=== PATIENT | male | born 1985 | race Hispanic/Latino ===

== ENCOUNTER 2020-09-18 02:30 | Emergency (ER) | payer OTHER ==
[2020-09-18] MEDS ORDERED: MORPHINE SULFATE 4 MG/1ML SYG ONE (02:55)
[2020-09-18] MEDS ORDERED: KETAMINE HCL 100 MG/ML 5ML VIAL IJ ONE (03:16)
[2020-09-18] MEDS ORDERED: PROPOFOL 10 MG/ML 20ML VIAL IV ONE (03:17)
[2020-09-18] MEDS ORDERED: SODIUM CHLORIDE 0.9% 1000ML 1,000 ML IV ONE (03:28)
== END 2020-09-18 06:29 | disposition home or self-care (01) ==
LOC: EDH 02:30
DX: S43.084A Other dislocation of right shoulder joint, initial encounter (principal); Z72.0 Tobacco use; Y93.39 Activity, other involving climbing, rappelling and jumping off; Y93.89 Activity, other specified; Y92.89 Other specified places as the place of occurrence of the external cause; Y99.8 Other external cause status
CPT/HCPCS: 23650 ×2; 73030 ×4; 96374; 99152 ×2; 99284; 99285; J2270; J2405; J2704; J3490 ×2; J7030; 96372; 96375

== ENCOUNTER 2020-09-18 07:56 | Emergency (ER) | payer OTHER ==
[2020-09-18] MEDS ORDERED: KETAMINE HCL 100 MG/ML 5ML VIAL IJ ONE (08:26)
[2020-09-18] MEDS ORDERED: ONDANSETRON HCL 4 MG/2 ML VIAL ONE (09:26)
== END 2020-09-18 11:27 | disposition home or self-care (01) ==
LOC: EDH 07:56
DX: S43.004A Unspecified dislocation of right shoulder joint, initial encounter (principal); S05.11XA Contusion of eyeball and orbital tissues, right eye, initial encounter; F19.10 Other psychoactive substance abuse, uncomplicated; Z72.0 Tobacco use; X58.XXXA Exposure to other specified factors, initial encounter; Y93.89 Activity, other specified; Y92.89 Other specified places as the place of occurrence of the external cause; Y99.8 Other external cause status
CPT/HCPCS: 23650; 73030 ×2; 96374; 99152; 99284; J2405; J3490; 96372; 96375

== ENCOUNTER 2020-09-25 13:30 | Emergency (ER) | payer OTHER ==
[2020-09-25] MEDS ORDERED: KETOROLAC TROMETHAMINE 30MG/ML ONE (13:44)
[2020-09-25] MEDS ORDERED: SODIUM CHLORIDE 0.9% 1000ML 1,000 ML IV ONE (14:23)
[2020-09-25] MEDS ORDERED: PROPOFOL 10 MG/ML 20ML VIAL IV ONE (14:23)
[2020-09-25] MEDS ORDERED: MORPHINE SULFATE 4 MG/1ML SYG ONE (14:27)
== END 2020-09-25 16:58 | disposition home or self-care (01) ==
LOC: EDH 13:30
DX: M24.411 Recurrent dislocation, right shoulder (principal); Z72.0 Tobacco use; X58.XXXA Exposure to other specified factors, initial encounter; Y93.89 Activity, other specified; Y92.098 Other place in other non-institutional residence as the place of occurrence of the external cause; Y99.8 Other external cause status
CPT/HCPCS: 23650; 73030 ×2; 96374; 96375; 99152; 99284; J1885; J2270; J2704; J7030

== ENCOUNTER → 2024-06-21 | Outpatient (CLI) | payer OTHER ==
[~2024-06-21] MED LIST: IOHEXOL 180 MG/ML 20 ML VIAL ONE; LIDOCAINE HCL 1% 20 ML VIAL ONE
== END | disposition home or self-care (01) ==
LOC: RAH 09:11
PROVIDERS: ATTEND Family Medicine
DX: S42.141A Displaced fracture of glenoid cavity of scapula, right shoulder, initial encounter for closed fracture (principal); X58.XXXA Exposure to other specified factors, initial encounter; Y93.89 Activity, other specified; Y92.89 Other specified places as the place of occurrence of the external cause; Y99.8 Other external cause status
CPT/HCPCS: 73201; 77002; 23350; Q9965